=== PATIENT | female | born 1985 | race Caucasian/White ===

== ENCOUNTER 2019-01-18 10:43 | Outpatient (CLI) | payer OTHER, SELFPAY ==
[2019-01-18 11:59] LABS: Abs Immature Grans 0.11 k/cumm (0.0-0.09); Absolute Basophil Count 0.01 k/cumm (0.0-0.2); Absolute Eosinophil Count 0.02 k/cumm (0.0-0.7); Absolute Lymphocyte Count 1.54 k/cumm (1.2-3.4); Absolute Monocyte Count 0.48 k/cumm (0.11-0.7); Absolute Neutrophil Count 5.94 k/cumm (1.2-6.7); Basophils % 0.1; Eosinophils % 0.2; HCT 37.3 % (36.0-46.0); HGB 12.7 g/dL (12.0-15.5); Immature Grans % 1.4; Mean Corpuscular Hemoglobin 30.5 pg (27.0-33.0); Mean Corpuscular Volume 89.7 fL (80-95); Mean Platelet Volume 10.2 fL (8.0-11.0); Monocytes % 5.9; Neutrophils % 73.4; Platelet Count 228 x1000/uL (130-400); RBC 4.16 m/cumm (4.00-5.20); RBC Distribution Width 12.5 % (11.7-14.6)
[2019-01-18 12:34] LABS: TSH (W/Ref FT4) 1.21 uIU/mL (0.36-3.74)
[2019-01-18 12:49] LABS: *AMPHETAMINES SCREEN URINE Negative (Negative); *BARBITURATES SCREEN URINE Negative (Negative); *BENZODIAZEPINES SCREEN URINE Negative (Negative); Cannabinoids THC Negative (Negative); Cocaine Screen,Urine Negative (Negative); METHADONE URINE SCREEN Negative (Negative); OPIATES URINE SCREEN Negative (Negative)
[2019-01-18 12:57] LABS: Tricyclic Antidepressants Negative (Negative)
[2019-01-19 10:14] LABS: Hepatitis C Ab w Rflx HCV PCR Negative (NEGAT)
[2019-01-19 10:23] LABS: Rubella IgG Ab (UVM) Positive
[2019-01-19 10:50] LABS: Varicella IgG Antibody Positive
[2019-01-19 11:15] LABS: HIV-1/2 Ag & Ab Screen Negative (NEGAT); Hepatitis B Surface Ag Negative (NEGAT)
[2019-01-19 12:41] LABS: Chlamydia Result Negative (Negative); GC Result Negative (Negative); Specimen Description CERVIX
[2019-01-19 13:57] LABS: Syphilis Total Ab w/Reflex Nonreactive (Nonreactive)
[2019-01-21 09:52] LABS: Buprenorphine Negative; Norbuprenorphine Negative
== END 2019-01-18 11:03 ==
PROVIDERS: PCP Nurse Practitioner Family; Visit Provider Advanced Practice Midwife
DX: Z34.91 Encounter for supervision of normal pregnancy, unspecified, first trimester (principal); Z11.4 Encounter for screening for human immunodeficiency virus [HIV]; Z11.59 Encounter for screening for other viral diseases; Z01.84 Encounter for antibody response examination
CPT/HCPCS: 36415; 80307; 86787; 86803; 86850; 86900; 86901; 87340; 87389; 87491; 87591; 84443; 85025; 86762; 86780

== ENCOUNTER 2019-01-18 13:41 | Outpatient (REF) | payer OTHER, SELFPAY ==
--- NOTE | 2019-01-18 10:05 | PAPFT_PTH ---
PATIENT: Destiny Fernandez V LOC: [facility] U#:[id number] AGE/SX: 33/F ROOM: RE01/18/[address]: Ayan Teresa RN : 1985 BED: DIS: 01/18/2019 SPEC #: [id number] RECD: 01/18/19 17:48 STATUS: RELL REPartha #: [id number] ENRIQUETA: 01/18/19 10:[address]: Ayan Teresa DEPT: [facility] Cytology RECD BY: Ashley Pratt ENTERED: 01/18/19 17:49 SP TYPE: PAPFT OTHR DR: Pastora Dejesus Tissues: 1 - CX/ENDOCX FOR PAP SMEARS Procedures: PAP THIN PREP/UVM Screening HPV DNA PROBE Comments: [id number]
== END 2019-01-18 14:01 ==
LOC: LBN 13:41
PROVIDERS: PCP Nurse Practitioner Family; Visit Provider Advanced Practice Midwife
DX: Z34.91 Encounter for supervision of normal pregnancy, unspecified, first trimester (principal); Z12.4 Encounter for screening for malignant neoplasm of cervix; Z11.51 Encounter for screening for human papillomavirus (HPV)
CPT/HCPCS: 88142; 87086; 87624

== ENCOUNTER 2019-02-03 10:41 | Outpatient (CLI) | payer OTHER, SELFPAY ==
[2019-02-03 10:57] LABS: Kit/Specimen SENT
== END 2019-02-03 11:01 ==
PROVIDERS: PCP Nurse Practitioner Family; Visit Provider Advanced Practice Midwife
DX: Z34.91 Encounter for supervision of normal pregnancy, unspecified, first trimester (principal); Z36.89 Encounter for other specified antenatal screening
CPT/HCPCS: 36415

== ENCOUNTER 2019-03-15 10:11 | Outpatient (CLI) | payer OTHER, SELFPAY ==
[2019-03-16 13:41] LABS: AFP 77.9 ng/mL; Calculated age at EDD 32 years; Cigarette smoking status non-Smoker; GA used in risk estimate Scan estimate; IVF Pregnancy No; Initial or repeat testing Initial testing; Insulin dependent diabetes No; Maternal Weight 134 lbs; Number of Fetuses 1; Prev Pregnancy w/NTD No; RECOMMENDED FOLLOW UP None.; Results Summary Normal risk
== END 2019-03-15 10:31 ==
PROVIDERS: PCP Nurse Practitioner Family; Visit Provider Advanced Practice Midwife
DX: Z34.91 Encounter for supervision of normal pregnancy, unspecified, first trimester (principal); Z36.89 Encounter for other specified antenatal screening
CPT/HCPCS: 36415; 82105

== ENCOUNTER 2019-03-22 00:05 | Outpatient (CLI) | payer OTHER, SELFPAY ==
--- NOTE | 2019-03-22 09:56 | DI.US_ITS ---
EXAM: US OB 2-3 TRIMESTER CLINICAL HISTORY: 18 anatomy survey, Z34.90 TECHNIQUE: Ultrasound performed using standard protocol. COMPARISON: No exams were available for comparison FINDINGS: The fetus was in variable position during the exam. The placenta is posterior and low lying. The e dge of the placenta measures 1.7 cm from the internal os. The biometric measurements correspond to 1 8 weeks 6 days, consistent with previous dating. No abnormalities are seen. Cervical length i s normal at 6.3 cm. IMPRESSION: survey is within normal limits. There is a low-lying placenta.
== END 2019-03-22 00:25 ==
PROVIDERS: PCP Nurse Practitioner Family; Visit Provider Advanced Practice Midwife
DX: Z34.92 Encounter for supervision of normal pregnancy, unspecified, second trimester (principal)
CPT/HCPCS: 76805

== ENCOUNTER 2019-05-28 03:47 | Outpatient (CLI) | payer OTHER, SELFPAY ==
--- NOTE | 2019-05-28 08:45 | DI.US_ITS ---
EXAM: US OB F/U FACIAL/LVOT/RVOT CLINICAL HISTORY: LOW-LYING PLACENTA, LOOKING FOR MIGRATION Z34.90 SUPERVISION NORMAL TECHNIQUE: Ultrasound performed using standard protocol. COMPARISON: US OB 2-3 TRIMESTER from 03/22/2019 FINDINGS: Placenta is posterior. The tip of the placenta lies 3.1 cm from the internal os. There is a single intrauterine gestation. The fetus is in the breech position. heart rate is 169 beats per berhane te. Cervical length is 4.9 cm. IMPRESSION: Posterior placenta. The tip of the placenta lies 3.1 cm from the internal os. This compares with 1. 7 cm on the prior examination.
[2019-05-28 09:23] LABS: HCT 37.1 % (36.0-46.0); HGB 12.1 g/dL (12.0-15.5); Mean Corp. HGB Concentration 32.6 g/dL (32.0-36.0); Mean Corpuscular Hemoglobin 31.2 pg (27.0-33.0); Mean Corpuscular Volume 95.6 fL (80-95); Mean Platelet Volume 9.4 fL (8.0-11.0); Platelet Count 219 x1000/uL (130-400); RBC 3.88 m/cumm (4.00-5.20); RBC Distribution Width 13.2 % (11.7-14.6)
[2019-05-28 09:28] LABS: Glucose,1 Hr (Glucola) 121 mg/dL (80-140)
== END 2019-05-28 04:07 ==
PROVIDERS: PCP Nurse Practitioner Family; Visit Provider Advanced Practice Midwife
DX: O44.42 Low lying placenta NOS or without hemorrhage, second trimester (principal)
CPT/HCPCS: 36415; 76815; 82950; 85027

== ENCOUNTER 2019-07-18 22:32 | Observation (INO) | payer OTHER, SELFPAY | END 2019-07-19 01:42 | disposition home or self-care (01) | PROVIDERS: Admitting Provider Advanced Practice Midwife; PCP Nurse Practitioner Family; Visit Provider Advanced Practice Midwife | DX: O60.03 Preterm labor without delivery, third trimester (principal); Z3A.35 35 weeks gestation of pregnancy; Z36.85 Encounter for antenatal screening for Streptococcus B | CPT/HCPCS: 87081; G0378 ==

== ENCOUNTER 2019-07-27 18:19 | Outpatient (REF) | payer OTHER, SELFPAY ==
[2019-07-27 19:27] LABS: *AMPHETAMINES SCREEN URINE Negative (Negative); *BARBITURATES SCREEN URINE Negative (Negative); *BENZODIAZEPINES SCREEN URINE Negative (Negative); Cannabinoids THC Negative (Negative); Cocaine Screen,Urine Negative (Negative); METHADONE URINE SCREEN Negative (Negative); OPIATES URINE SCREEN Negative (Negative)
[2019-07-27 19:28] LABS: Tricyclic Antidepressants Negative (Negative)
[2019-08-02 15:40] LABS: Buprenorphine Negative; Norbuprenorphine Negative
== END 2019-07-27 18:39 ==
LOC: LBN 18:19
PROVIDERS: PCP Nurse Practitioner Family; Visit Provider Advanced Practice Midwife
DX: Z34.93 Encounter for supervision of normal pregnancy, unspecified, third trimester (principal)
CPT/HCPCS: 80307

== ENCOUNTER 2019-08-01 20:25 | Emergency (ER) | payer OTHER, SELFPAY ==
[2019-08-01 20:33] VITALS: BP 119/84; PULSE 116; RESP 18; TEMP 37.3; O2SAT 97
--- NOTE | 2019-08-01 20:52 | W.ED.GENAD ---
Discharge Plan Disposition Patient Disposition: HOME Condition: Good Discharge Details Chief Complaint: Fever Clinical Impression: Fever, Dehydration Primary Care Provider: Pastora Dejesus ED Provider: Aubrey Wilhelm Home Meds and New Rx's Prescriptions: New amoxicillin-pot clavulanate [Augmentin] 875-125 mg tablet 1 tab PO BID 7 Days Qty: 14 RF: 0 No Action prenat.vits,torrey,[id number] Tablet 1 tab PO DAILY RF: 0 Adult Probiotic 3 billion cell capsule 3,000 mmu cells PO DAILY RF: 0 omega-3 fatty acids 500 mg capsule 500 mg PO DAILY RF: 0 Discharge Instructions Instructions: Dehydration (ED), Fever in Adults (ED) Additional Instructions: At this time the ultrasound shows no evidence of pneumonia. Your urine shows no evidence of significant infection, your blood work looks good. Your potassium is just minimally low, please eat bananas for the next few days to help replete this. At this time I suspect that your symptoms are from a virus, please continue to take Tylenol as needed and drink plenty of fluids. There was a very tiny amount of compressive atelectasis noted on the ultrasound but no evidence of pneumonia. If you develop worsening cough or shortness of breath please begin the antibiotic and follow-up closely with your OB. With yourself self isolation that you have you have been doing already it is extremely unlikely that this is influenza or COVID-19. If your symptoms persist for greater than 72 hours it may be beneficial to get further evaluation on an outpatient basis for these. At this time though this seems very unlikely. If you notice any worsening of your symptoms, or any new symptoms such as vomiting, diarrhea, fever, chills, shortness of breath, chest pain, numbness, weakness, or fainting , please return immediately to the emergency department for reevaluation. Please follow up with your primary care provider as soon as possible for reassessment and reevaluation. As always, it was a pleasure participating in your medical care today. Referrals: Pastora Dejesus [Primary Care Provider] - Medical Decision Making Is a 33-year-old female who is 37 weeks who presents today for fever and chills for last 24 to 48 hours. She has had no complications with the , she is taking her prenatals. No sick contacts, she has been self isolating for the last month. No other clinical red flags at home. She does admit to a very minimal cough, but no productivity. No pleuritic chest pain, no shortness of breath. Physical exam is notably unremarkable. Gravid abdomen, heart rate 130 for the fetus. Patient is mildly tachycardic herself. Does appear dry with dry mucous membranes. Lung sounds are exquisitely clear, no symptoms of dysuria or increased urinary frequency. Bedside limited ultrasound of the patient's lung holt demonstrates minimal 1-2 B-lines in the left mid lung holt, no evidence of consolidation, no significant B-lines otherwise. No erythema in the posterior pharynx. No other abnormalities on exam. The patient has received her flu shot. Symptoms inconsistent with constance pneumonia, meningitis, or urosepsis. Differential includes viral etiology, flu unlikely, coronavirus notably unlikely. Current protocol states that we are no longer testing for coronavirus here in the ED, but we do test the outpatient center. At this time I do feel that it would be prudent to get screening labs, rehydrate with a liter of normal saline, monitor closely. We did discuss x-rays, but with the patient's current , the unremarkable ultrasound, clear lung sounds, no signs of hypoxemia whatsoever, felt that radiation exposure would be not in the best interest of the patient and her baby at this time. Plan was discussed with Dr. Upton he agrees at this time. We will continue to monitor and rehydrate. 11:22 PM Urinalysis is negative for infection, no white count, no left shift or bandemia. Electrolytes stable aside for a slightly low potassium at 3.3. Anion gap stable. Renal function good. Bedside ultrasound shows 2 B-lines, potentially from atelectasis, but no evidence of consolidation or pneumonia. Suspect symptoms are likely from common virus. Patient was rehydrated with 1500 mL's of normal saline, nonstress test was performed and demonstrated no abnormalities. This time patient is feeling much better. At this time I do feel that she is stable for discharge. With no clinical evidence of PE, pneumonia, meningitis, urosepsis, other significant abnormality I do feel that this is reasonable. Recommend bananas for oral potassium supplementation. We will give a prescription for Augmentin, as current [facility] antibiotic grams recommend this based on current resistance profiles. I do not feel that she should be taking this at this time, I have recommended that she hold off and only take the antibiotic if she develops a worsening cough, and continued symptoms. No indications for starting antibiotic treatment at this time. Recommend close follow-up with her OB, and potential pursue will of further viral testing if her symptoms are not improving over the next 48 to 72 hours. Case was discussed with the patient and her . I have extensively reviewed the treatment plan and discharge instructions with the patient and their family. I have addressed all patient concerns at this time. The patient and family was made aware of what symptoms to monitor for that would warrant a return to the emergency department. Discussed the plan with the patient and family, they demonstrate verbal understanding and agreement with our assessment and plan at this time. HPI General Date/Time Provider Initiated Documentation: 08/01/19 20:26. HPI Narrative: This is a very pleasant 33-year-old female with no significant past medical history who is currently 37 weeks who presents today for evaluation of fever and chills. Patient has had no complications with her , she has been self isolating for the last month, with the rest of her family. No other sick contacts. For the last 24 to 48 hours she has had mild subjective fever, chills, and has not been drinking much at all. She denies any chest pain or shortness of breath. She does admit to mild cough, but this is only intermittent. She denies any neck pain, neck stiffness, calf tenderness, history of blood clots, pleuritic chest pain, numbness tingling or weakness, productive cough, diarrhea, vomiting. No other complaints at this time. She has been taking occasional Tylenol but has not taken any today. She denies any vaginal discharge, pelvic discharge abdominal or pelvic pain. Related Data Home Medications Medication Instructions Recorded Confirmed lactobacillus combination no.8 3 3,000 mmu cells PO DAILY 12/11/18 08/01/19 billion cell capsule omega-3 fatty acids 500 mg capsule 500 mg PO DAILY 12/11/18 08/01/19 prenat.vits,torrey,qtx-jbzp-tzsye 1 tab PO DAILY 12/11/18 08/01/19 amoxicillin-pot clavulanate 1 tab PO BID 7 Days #14 tab 08/01/19 [Augmentin] Previous Rx's Medication Instructions Recorded amoxicillin-pot clavulanate 1 tab PO BID 7 Days #14 tab 08/01/19 [Augmentin] Allergies Allergy/AdvReac Type Severity Reaction Status Date / Time No Known Allergies Allergy Verified 08/01/19 20:36 General Stated Complaint: Fever SHAILESH: 3 Review of Systems All systems reviewed & are unremarkable except as noted in HPI and below PFSH Surgical History (Updated 01/18/19 @ 09:26 by Ayan Velasquez CNM) Tyro teeth removed (Acute) Social History Smoking/Tobacco Use Status: Never Alcohol Intake: never Drug use: Never Household members: spouse and children Sexually active: Yes Do you feel safe at home: Yes Do you feel safe in your relationship?: Yes Female Reproductive History Menstrual control method: none History History 2 Para 1 Hx # Term Pregnancies 1 Multiple births 0 Hx # Pregnancies 0 Ectopic pregnancies 0 AB induced 0 Hx Number of Living Children 1 AB spontaneous 1 Past Pregnancies Del. Date GA/Weeks # Outcome Route Wgt Sex Labor Lgth Anesthesia Location Prov Complic 01/06/16 39 No Successful vaginal 3.203 kg Female 16 hrs [facility] Delivery Date: 01/06/16 once had epidural slept x 9 hrs awoke and ready to push. AYAN VELASQUEZ Exam Narrative Exam Narrative: 1.Const: Well-nourished, Well-developed, appearing stated age 2.Eyes: PERRL, no conjunctival injection, and symmetrical lids. 3.ENT: Atraumatic external nose and ears. Dry MM. Neck: Symmetric, trachea midline, No thyromegaly. Patient demonstrates good movement of cervical neck. There is no nuchal rigidity, no nuchal tenderness. Patient is able to flex the neck without any difficulty or significant pain. Negative Kernig's and Brudzinski sign. No erythema in the posterior oropharynx. 4.CVS: +S1/S2, No murmurs or gallops. Peripheral pulses 2+ and equal in all extremities. Brisk capillary refill in all extremities. 5.RESP: Unlabored respiratory effort. Clear to auscultation bilaterally. No wheezes rales or rhonchi 6.GI: Soft, Nontender/Nondistended, No hepatosplenomegaly. No guarding or rebound. Appropriately gravid abdomen. 7.MSK: Normocephalic/Atraumatic, Extremities w/o deformity or ttp No cyanosis or clubbing, Normal movement of all extremities 8.Skin: Warm, Dry. No rashes or lesions. 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 Sensation grossly intact, no focal neurologic deficits. 10.Psych: (AAO) x3. Appropriate mood and affect Course Vital Signs Vital signs: Vital Signs Temperature 37.3 C 08/01/19 20:33 Pulse 116 H 08/01/19 20:33 Respiratory Rate 18 08/01/19 20:33 Blood Pressure 119/84 08/01/19 20:33 Pulse Oximetry 97 08/01/19 20:33 Temperature 37.3 C 08/01/19 20:33 Temperature Source Oral 08/01/19 20:33 Pulse 116 H 08/01/19 20:33 Respiratory Rate 18 08/01/19 20:33 Respiratory Effort Non-Labored 08/01/19 20:38 Blood Pressure 119/84 08/01/19 20:33 Pulse Oximetry 97 08/01/19 20:33 End Tidal Co2 4 08/01/19 20:33
[2019-08-01 20:59] LABS: Bilirubin Negative (Negative); Blood Negative (Negative); Clarity Clear (Clear); Glucose Negative (Negative); Ketones Negative (Negative); Leukocyte Esterase Negative (Negative); Nitrite Negative (Negative); Urobilinogen 0.2 EU/dL (Up TO 0.2)
[2019-08-01 21:12] VITALS: TEMP 37.3
[2019-08-01] MEDS: ACETAMINOPHEN 1,000 MG/100 ML BTL 400 MG IVPB (21:12)
[2019-08-01] MEDS: Normal Saline 1,000 ML 1000 ML IV (21:12)
[2019-08-01 21:53] VITALS: PULSE 90; RESP 18; O2SAT 99
[2019-08-01 22:00] LABS: Abs Immature Grans 0.06 k/cumm (0.0-0.09); Absolute Basophil Count 0.01 k/cumm (0.0-0.2); Absolute Eosinophil Count 0.01 k/cumm (0.0-0.7); Absolute Lymphocyte Count 0.69 k/cumm (1.2-3.4); Absolute Monocyte Count 0.48 k/cumm (0.11-0.7); Absolute Neutrophil Count 5.55 k/cumm (1.2-6.7); Basophils % 0.1; Eosinophils % 0.1; HCT 32.6 % (36.0-46.0); HGB 11.1 g/dL (12.0-15.5); Immature Grans % 0.9 %; Lymphocytes % 10.1; Mean Corpuscular Hemoglobin 31.9 pg (27.0-33.0); Mean Corpuscular Volume 93.7 fL (80-95); Monocytes % 7.1; Neutrophils % 81.7; Platelet Count 149 x1000/uL (130-400); RBC 3.48 m/cumm (4.00-5.20); RBC Distribution Width 13.3 % (11.7-14.6)
[2019-08-01] MEDS: Normal Saline 500 ML IV (22:05)
[2019-08-01 22:11] LABS: ALT 18 U/L (14-59); AST 20 U/L (15-37); Albumin 2.2 g/dL (3.4-5.0); Alkaline Phosphatase 122 U/L (46-116); Anion Gap 11.2 mmol/L (3-11); BUN 7 mg/dL (7-18); Bilirubin, Total 0.8 mg/dL (0.2-1.0); CO2 20.8 mmol/L (21.0-32.0); CREATININE 0.52 mg/dL (0.55-1.02); Calcium 8.1 mg/dL (8.5-10.1); Chloride 105 mmol/L (98-107); Glucose 82 mg/dL (74-106); Potassium 3.3 mmol/L (3.5-5.1); Sodium 137 mmol/L (136-145); Total Protein 5.4 g/dL (6.4-8.2)
[2019-08-01 23:19] VITALS: BP 108/64; PULSE 92; RESP 16; O2SAT 96
== END 2019-08-01 23:20 | disposition home or self-care (01) ==
PROVIDERS: Emergency Provider Student in an Organized Health Care Education/Training Program; PCP Nurse Practitioner Family
DX: O26.93 Pregnancy related conditions, unspecified, third trimester (principal); R50.9 Fever, unspecified; E86.0 Dehydration; Z3A.37 37 weeks gestation of pregnancy
CPT/HCPCS: 80053; 96361; 96365; 99284; 59025; 81003; 85025; J0131

== ENCOUNTER 2019-08-10 20:15 | Inpatient (IN) | payer OTHER, SELFPAY ==
[2019-08-10 21:58] LABS: HCT 36.6 % (36.0-46.0); HGB 12.2 g/dL (12.0-15.5); Mean Corp. HGB Concentration 33.3 g/dL (32.0-36.0); Mean Corpuscular Hemoglobin 31.2 pg (27.0-33.0); Mean Corpuscular Volume 93.6 fL (80-95); Mean Platelet Volume 9.7 fL (8.0-11.0); Platelet Count 231 x1000/uL (130-400); RBC 3.91 m/cumm (4.00-5.20); RBC Distribution Width 13.2 % (11.7-14.6); White Blood Cell Count 9.03 k/cumm (4.4-10.8)
[2019-08-10] MEDS: miSOPROStol 25 MCG TAB PO (22:01)
[2019-08-11] MEDS: Lactated Ringers 500 ML IV (09:35)
[2019-08-11] MEDS: Normal Saline Flush 10 ML SYR (09:36)
[2019-08-11] MEDS: FentaNYL/ROPIvacaine 2 mcg/ml and 0.1% 200 ML CADD Cassette EP (09:56)
[2019-08-11] MEDS: Ibuprofen 600 MG TAB PO (18:48)
[2019-08-11 20:19] LABS: COVID-19 RT-PCR UVMMC Result Negative (Negative)
[2019-08-12] MEDS: Ibuprofen 600 MG TAB PO (06:00)
[2019-08-12 06:52] LABS: HCT 36.9 % (36.0-46.0); HGB 12.2 g/dL (12.0-15.5); Mean Corp. HGB Concentration 33.1 g/dL (32.0-36.0); Mean Corpuscular Volume 93.9 fL (80-95); Platelet Count 242 x1000/uL (130-400); RBC 3.93 m/cumm (4.00-5.20); RBC Distribution Width 13.1 % (11.7-14.6); White Blood Cell Count 10.06 k/cumm (4.4-10.8)
== END 2019-08-12 15:15 | disposition home or self-care (01) | DRG 807 ==
PROVIDERS: Advanced Practice Midwife; Admitting Provider Advanced Practice Midwife; PCP Nurse Practitioner Family; Visit Provider Advanced Practice Midwife
DX: O70.0 First degree perineal laceration during delivery (principal); Z37.0 Single live birth; Z3A.38 38 weeks gestation of pregnancy; Z11.59 Encounter for screening for other viral diseases; O42.02 Full-term premature rupture of membranes, onset of labor within 24 hours of rupture
CPT/HCPCS: 36415; 85027; 86850; 86900; 86901; U0003; G0378; J3490

== ENCOUNTER 2019-09-22 16:19 | Outpatient (REF) | payer OTHER, SELFPAY ==
[2019-09-24 14:04] LABS: Chlamydia Result Negative (Negative); GC Result Negative (Negative)
== END 2019-09-22 16:39 ==
LOC: LBN 16:19
PROVIDERS: Visit Provider Advanced Practice Midwife
DX: Z11.3 Encounter for screening for infections with a predominantly sexual mode of transmission (principal)
CPT/HCPCS: 87491; 87591

== ENCOUNTER 2021-10-16 11:00 | Outpatient (REF) | payer OTHER, SELFPAY ==
[2021-10-16 15:34] LABS: HCT 39.4 % (36.0-46.0); HGB 12.4 g/dL (11.2-15.7); MCH 29.5 pg (27.0-33.0); MCHC 31.5 % (32.0-36.0); MCV 94 fL (80-95); MPV 10.3 fL (8.0-11.0); Platelet Count 277 10^3/uL (130-400); RBC 4.21 10^6/uL (3.93-5.22); RDW 12.2 % (11.7-14.6); RDW-SD 42.2 fL; WBC 5.24 10^3/uL (4.4-10.8)
[2021-10-16 16:02] LABS: ALT 25 U/L (14-59); AST 27 U/L (15-37); Albumin 4.2 g/dL (3.4-5.0); Alkaline Phosphatase 51 U/L (46-116); Anion Gap 6.6 mmol/L (3-11); BUN 13 mg/dL (7-18); Bilirubin, Total 0.7 mg/dL (0.2-1.0); CO2 30.4 mmol/L (21.0-32.0); CREATININE 0.8 mg/dL (0.55-1.02); Calcium 9.4 mg/dL (8.5-10.1); Calculated LDL 105 mg/dL (<100); Chloride 101 mmol/L (98-107); Cholesterol 176 mg/dL (<200); Glucose 100 mg/dL (74-106); HDL Cholesterol 65 mg/dL (40-60); Potassium 4.3 mmol/L (3.5-5.1); Sodium 138 mmol/L (136-145); Total Protein 7.5 g/dL (6.4-8.2); Triglyceride 31 mg/dL (<150)
== END 2021-10-16 11:01 | disposition home or self-care (01) ==
LOC: NCHCN 11:00
PROVIDERS: PCP Nurse Practitioner Family; Visit Provider Nurse Practitioner Family
DX: Z00.00 Encounter for general adult medical examination without abnormal findings (principal); Z82.49 Family history of ischemic heart disease and other diseases of the circulatory system; Z13.220 Encounter for screening for lipoid disorders
CPT/HCPCS: 80053; 80061; 85027

== ENCOUNTER → 2021-11-15 02:11 | Outpatient (CLI) | payer OTHER, SELFPAY ==
--- NOTE | 2021-11-15 15:20 | DI.MAMMO_ITS ---
Exam(s) MAMMO SCREENING EXAM: MAMMO SCREENING CLINICAL HISTORY: SCREENING, Z12.31; FAMILY H/O BREAST CA, Z80.3 TECHNIQUE: Bilateral full field digital CC and MLO mammographic images were obtained with 3D tomosyn thesis and utilizing computer aided detection (CAD). COMPARISON: Available for comparison. FINDINGS: Masses/Architectural Distortion: None seen. Microcalcifications: No suspicious pleomorphic-type are seen. Skin Thickening/Nipple Retraction: None. IMPRESSION: 1. No significant interval change with no specific features of malignancy noted. 2. Unless there is more urgent need, screening mammography is recommended, as per [place] [employer] guidelines. BI-RADS Category 1 - Negative Breast Density - Category C - Heterogeneously dense Breast density category C or D implies that the patient has dense breast tissue. Dense breast tissue is very common and is not abnormal but dense breast tissue can make it harder to find cancer on a ma mmogram. Also, dense breast tissue may increase their breast cancer risk. This information about the result of the mammogram report was provided to the patient to raise their awareness. Use this report when you speak with the patient about their risks for breast cancer, which includes their family hist ory. At that time, you may recommend for more screening tests (Ultrasound or MRI) as they might be us eful based on their risk. A negative radiographic report should not delay biopsy if a dominant or clinically suspicious mass is present. Up to ten percent of cancers are not identified on mammography. A negative report may reinforce clinical impression. Adenosis and dense breasts may obscure an underlying neoplasm. False positive reports average 6 to 10%. Patient will receive a letter notifying them of these results.
== END ==
PROVIDERS: PCP Nurse Practitioner Family; Visit Provider Nurse Practitioner Family
DX: Z12.31 Encounter for screening mammogram for malignant neoplasm of breast (principal); Z80.3 Family history of malignant neoplasm of breast
CPT/HCPCS: 77063; 77067

== ENCOUNTER 2022-10-09 10:01 | Outpatient (REF) | payer OTHER, SELFPAY | END 2022-10-09 10:02 | disposition home or self-care (01) | LOC: LBN 10:01 | PROVIDERS: PCP Nurse Practitioner Family; Visit Provider Advanced Practice Midwife | DX: R10.2 Pelvic and perineal pain (principal) | CPT/HCPCS: 87480; 87510; 87660 ==

== ENCOUNTER → 2022-11-20 01:34 | Outpatient (CLI) | payer OTHER, SELFPAY ==
--- NOTE | 2022-11-20 08:00 | DI.MAMMO_ITS ---
Exam(s) MAMMO SCREENING EXAM: MAMMO SCREENING CLINICAL HISTORY: SCREENING, Z12.31 TECHNIQUE: Mammograms were interpreted according to the usual protocol including computer analysis w zhiwo CAD system, tomosynthesis and C-view imaging. COMPARISON: 2020 - 2021 FINDINGS: The breasts are composed of heterogeneously dense fibroglandular densities, Breast Density category C . No suspicious masses or suspicious microcalcifications are seen. No skin thickening or abnormal axillary lymph nodes are seen. There has been no significant change from prior exams. IMPRESSION: BI-RADS Category 1, Negative mammogram. Yearly screening mammography is recommended. Breast Density Category C, heterogeneously Dense. The mammogram demonstrates the patient's breast tissue is dense. Dense breast tissue is very common a nd is not abnormal but dense breast tissue can make it harder to find cancer on a mammogram. Also, de nse breast tissue may increase breast cancer risk. This information about the result of the mammogram report was provided to the patient to raise their awareness. Use this report when you speak with the patient about their risks for breast cancer, which includes their family history. At that time, you may recommend additional screening tests (Ultrasound or MRI) as they might be useful based on their r isk. A negative radiographic report should not delay biopsy if a dominant or clinically suspicious mass is present. Up to ten percent of cancers are not identified on mammography. A negative report may reinforce clinical impression. Adenosis and dense breasts may obscure an underlying neoplasm. False positive reports average 6 to 10%.
== END ==
PROVIDERS: PCP Nurse Practitioner Family; Visit Provider Nurse Practitioner Family
DX: Z12.31 Encounter for screening mammogram for malignant neoplasm of breast (principal)
CPT/HCPCS: 77063; 77067

== ENCOUNTER 2023-11-07 16:04 | Outpatient (REF) | payer OTHER, SELFPAY ==
[2023-11-07 21:21] LABS: HGB 12.3 g/dL (11.2-15.7); MCH 30.4 pg (27.0-33.0); MCHC 32.4 % (32.0-36.0); MCV 94 fL (80-95); MPV 11.2 fL (8.0-11.0); Platelet Count 200 10^3/uL (130-400); RBC 4.05 10^6/uL (3.93-5.22); RDW 12.7 % (11.7-14.6); RDW-SD 44.4 fL; WBC 5.63 10^3/uL (4.4-10.8)
[2023-11-07 21:37] LABS: ALT 27 U/L (14-59); AST 18 U/L (15-37); Albumin 4.2 g/dL (3.4-5.0); Alkaline Phosphatase 50 U/L (46-116); Anion Gap 5.9 mmol/L (3-11); BUN 13 mg/dL (7-18); Bilirubin, Total 0.92 mg/dL (0.2-1.0); CO2 31.1 mmol/L (21.0-32.0); CREATININE 0.8 mg/dL (0.55-1.02); Calcium 9.3 mg/dL (8.5-10.1); Calculated LDL 104 mg/dL (<100); Chloride 105 mmol/L (98-107); Cholesterol 191 mg/dL (<200); Estimated GFR 97.87 (mL/min/1.73m2); Glucose 76 mg/dL (74-106); HDL Cholesterol 79 mg/dL (40-60); Potassium 4.2 mmol/L (3.5-5.1); Sodium 142 mmol/L (136-145); Triglyceride 41 mg/dL (<150)
== END 2023-11-07 16:05 | disposition home or self-care (01) ==
LOC: NCHCN 16:04
PROVIDERS: PCP Nurse Practitioner Family; Visit Provider Nurse Practitioner Family
DX: Z00.00 Encounter for general adult medical examination without abnormal findings (principal); Z13.220 Encounter for screening for lipoid disorders; Z13.0 Encounter for screening for diseases of the blood and blood-forming organs and certain disorders involving the immune mechanism; Z13.228 Encounter for screening for other metabolic disorders; Z13.29 Encounter for screening for other suspected endocrine disorder; Z83.2 Family history of diseases of the blood and blood-forming organs and certain disorders involving the immune mechanism
CPT/HCPCS: 80053; 80061; 85027; 84443

== ENCOUNTER 2023-12-18 02:36 | Outpatient (CLI) | payer OTHER, SELFPAY ==
--- NOTE | 2023-12-18 | DI.MAMMO_ITS ---
Exam(s) MAMMO SCREENING EXAM: MAMMO SCREENING CLINICAL HISTORY: Screening, Z12.31 TECHNIQUE: Bilateral full field digital CC and MLO mammographic images were obtained with 3D tomosyn thesis and utilizing computer aided detection (CAD). COMPARISON: Available for comparison. FINDINGS: Masses/Architectural Distortion: None seen. Microcalcifications: No suspicious pleomorphic-type are seen. Skin Thickening/Nipple Retraction: None. IMPRESSION: 1. No significant interval change with no specific features of malignancy noted. 2. Unless there is more urgent need, screening mammography is recommended, as per [place] [employer] guidelines. BI-RADS Category 1 - Negative Breast Density - Category C - Heterogeneously dense Breast density category C or D implies that the patient has dense breast tissue. Dense breast tissue is very common and is not abnormal but dense breast tissue can make it harder to find cancer on a ma mmogram. Also, dense breast tissue may increase their breast cancer risk. This information about the result of the mammogram report was provided to the patient to raise their awareness. Use this report when you speak with the patient about their risks for breast cancer, which includes their family hist ory. At that time, you may recommend for more screening tests (Ultrasound or MRI) as they might be us eful based on their risk. A negative radiographic report should not delay biopsy if a dominant or clinically suspicious mass is present. Up to ten percent of cancers are not identified on mammography. A negative report may reinforce clinical impression. Adenosis and dense breasts may obscure an underlying neoplasm. False positive reports average 6 to 10%. Patient will receive a letter notifying them of these results.
== END 2023-12-18 02:56 ==
LOC: DI 02:36
PROVIDERS: PCP Nurse Practitioner Family; Visit Provider Nurse Practitioner Family
DX: Z12.31 Encounter for screening mammogram for malignant neoplasm of breast (principal)
CPT/HCPCS: 77063; 77067

== ENCOUNTER 2025-01-07 03:47 | Outpatient (CLI) | payer OTHER, SELFPAY ==
--- NOTE | 2025-01-07 05:30 | DI.MRI_ITS ---
Exam(s) MR UPPER JOINT LT WO EXAM: MR UPPER JOINT LT WO CLINICAL HISTORY: L SHOULDER PAIN, ? SLAP TEAR,m25.512. TECHNIQUE: Multiplanar multisequence MRI was performed. COMPARISON: None. FINDINGS: BONES: There is no fracture or contusion pattern. JOINTS:The acromioclavicular joint is normal. The glenohumeral joint is normal. TENDONS: Supraspinatus: Unremarkable. Infraspinatus: Unremarkable. Subscapularis: Unremarkable. Teres Minor: Unremarkable. Biceps and [place]: Unremarkable. MUSCLES: Unremarkable. GLENOID LABRUM: Unremarkable on this noncontrast examination. SOFT TISSUES: Unremarkable. BURSAE: Subacromial and subdeltoid bursae shows minimal fluid. Small amount of fluid in the subcoracoid bursa.. IMPRESSION: No evidence of rotator cuff tear. No labral tear is visualized however there is no joint fluid outlining the labrum. DATA REPOSITORY:
== END 2025-01-07 04:07 ==
LOC: DI 03:48
PROVIDERS: PCP Nurse Practitioner Family; Visit Provider Student in an Organized Health Care Education/Training Program
DX: M25.512 Pain in left shoulder (principal)
CPT/HCPCS: 73221

== ENCOUNTER 2025-01-31 02:28 | Outpatient (CLI) | payer OTHER, SELFPAY ==
--- NOTE | 2025-01-31 | DI.MAMMO_ITS ---
Exam(s) MAMMO SCREENING EXAM: MAMMO SCREENING CLINICAL HISTORY: SCREENING MAMMO Z12.31 TECHNIQUE: Bilateral full field digital CC and MLO mammographic images were obtained with 3D tomosynthesis and utilizing computer aided detection (CAD). COMPARISON: Comparison is made with prior examinations. FINDINGS: Masses/Architectural Distortion: No suspicious masses or areas of architectural distortion are present. There is a question of a development of a nodule in the posterior medial left breast on the craniocaudad view approximately 5 cm from the nipple. This may represent overlying fibroglandular tissue but spot compression views requested for further evaluation. Microcalcifications: No suspicious pleomorphic-type are seen. Skin Thickening/Nipple Retraction: None. IMPRESSION: 1. Question of a new breast nodule versus fibroglandular tissue in the medial left breast on the craniocaudad view. 2. A spot compression views requested for further evaluation. Ultrasound may be indicated at that time. BI-RADS Category 0 - Incomplete: Need additional imaging evaluation Breast Density - Category C - The breast are heterogeneously dense, which may obscure small masses. Breast density Category C or D implies that the patient has dense breast tissue. Dense breast tissue can make it harder to find cancer on a mammogram. Dense breast tissue is also associated with an increased risk of breast cancer. This information about the result of the mammogram report was provided to the patient to raise their awareness. Use this report when you speak with the patient about their risks for breast cancer, which includes their family history. At that time, you may recommend additional screening tests (Ultrasound or MRI) as these tests may add significant information. A negative radiographic report should not delay biopsy if a dominant or clinically suspicious mass is present. Up to ten percent of cancers are not identified on mammography. A negative report may reinforce clinical impression. Adenosis and dense breasts may obscure an underlying neoplasm. False positive reports average 6 to 10%. Patient will receive a letter notifying them of these results.
== END 2025-01-31 02:48 ==
LOC: DI 02:28
PROVIDERS: PCP Nurse Practitioner Family; Visit Provider Nurse Practitioner Family
DX: Z12.31 Encounter for screening mammogram for malignant neoplasm of breast (principal)
CPT/HCPCS: 77063; 77067

== ENCOUNTER 2025-02-03 04:00 | Outpatient (CLI) | payer OTHER, SELFPAY ==
--- NOTE | 2025-02-03 09:10 | DI.US_ITS ---
Exam(s) MG MAMMO SCREEN CALL BACK UNI US BREAST LT LIMITED EXAM: MG MAMMO SCREEN CALL BACK UNI and U/S breast LT limited CLINICAL HISTORY: F/U MAMMO, R92.8,? NEW LT BREAST NODULE VS FIBROGLANDULAR TISSUE MEDIAL LT. TECHNIQUE: Craniocaudal and mediolateral oblique Full Field Digital Mammography views of the left breast with Computer Aided Diagnosis followed by Tomosynthesis and limited left breast ultrasound. COMPARISON: Comparison is made with prior examinations. FINDINGS: Mammography/Tomosynthesis: Masses/Architectural Distortion: The area of concern in the posterior medial left breast does not persist on the additional views. There are no areas of architectural distortion or suspicious masses present. Microcalcifictions: No suspicious pleomorphic-type are seen. Skin Thickening/Nipple Retraction: None. Limited left breast US: Echotexture: Normal appearance of the glandular tissue. Shadowing: No suspicious foci. Cyst: None. Solid lesions: None seen. Ductal dilation: None. IMPRESSION: 1. No evidence of malignancy is noted. 2. Unless there is more urgent need, follow-up screening mammography is recommended, as per [place] [employer] guidelines. 3. The findings were discussed with the patient on the date of the examination. BI-RADS Category 1 - Negative Breast Density - Category C - The breast are heterogeneously dense, which may obscure small masses. Breast density Category C or D implies that the patient has dense breast tissue. Dense breast tissue can make it harder to find cancer on a mammogram. Dense breast tissue is also associated with an increased risk of breast cancer. This information about the result of the mammogram report was provided to the patient to raise their awareness. Use this report when you speak with the patient about their risks for breast cancer, which includes their family history. At that time, you may recommend additional screening tests (Ultrasound or MRI) as these tests may add significant information. A negative radiographic report should not delay biopsy if a dominant or clinically suspicious mass is present. Up to ten percent of cancers are not identified on mammography. A negative report may reinforce clinical impression. Adenosis and dense breasts may obscure an underlying neoplasm. False positive reports average 6 to 10%. Patient will receive a letter notifying them of these results.
== END 2025-02-03 04:20 ==
PROVIDERS: PCP Nurse Practitioner Family; Visit Provider Nurse Practitioner Family
DX: R92.8 Other abnormal and inconclusive findings on diagnostic imaging of breast (principal); Z12.31 Encounter for screening mammogram for malignant neoplasm of breast
CPT/HCPCS: 76642; 77063; 77067